=== PATIENT | male | born 1965 | race Caucasian/White ===

== ENCOUNTER 2025-10-28 05:35 | Emergency (ER) | payer SELFPAY ==
[2025-10-28 05:37] VITALS: BP 182/113
[2025-10-28 05:54] VITALS: BMI 37.2
--- NOTE | 2025-10-28 05:56 | EDRN ---
Pt thinks he has sleep apnea and says when he sleeps, his mouth and throat get dry. Yesterday, pt noted a lump in his throat. At 0500, pt woke to go to the bathroom and felt the lump in his throat. Pt tried to spit out phlegm and says what came
out was dark blood which scared him. Pt thinks he might have an obstruction in his throat. Throat is not sore, just dry. Pt handling oral secretions. Pt feels if he spits anything out, blood will come out. Pt does not know if he can eat or
drink. Pt talking in full sentences. No ill contact, fever/chills/cough, ear ache.
[2025-10-28 06:03] VITALS: BP 140/93
--- NOTE | 2025-10-28 06:26 | ED.GENMED ---
History of Present Illness
General
Chief Complaint: Throat Problem
Time Seen by Provider: 10/28/25 06:05
History of Present Illness
History of Present Illness:
60-year-old male with history of hypertension, hyperlipidemia, prediabetes, MU presenting to the emergency department for throat discomfort. Patient reports that he woke up acutely around 5 AM and felt like something was stuck in his throat. He
reports that he had phlegm, and he then spit up blood. Denies any cough or hemoptysis. Denies difficulty breathing. He has since not tried to swallow any food or liquid. Does note that he has been told in the past that he has mild obstructive
sleep apnea. Denies any chest pain or difficulty breathing. He is not on any blood thinners. Does report history of PE in the past, however notes that it was provoked by COVID. Denies fever or pain to the throat. Denies additional acute medical
complaints
Phy Exam
Physical Exam
Physical Exam:
General: Well-appearing, no clinical signs of dehydration, nontoxic and in no acute distress
HEENT: protecting airway, no oral pharyngeal swelling, large anatomic uvula. Normal phonation of voice, no stridor
Neck: appears supple, no palpation of external masses
CV: Normal heart rate, regular rhythm
Resp: No accessory muscle use, no increased work of breathing, lungs clear to auscultation bilaterally
Abd: No distention
Extremities: No deformities, no swelling
Neuro: alert, no focal neurologic deficit
: deferred
Rectal: deferred
Psych: Normal affect
Skin: Intact
Course
Orders/Labs/Results
Orders:
Orders
10/28/25 06:26
CT Neck W/o Iv Contrast Urgent
Comment:
Reason For Exam: feels like something is stuck
Vital Signs
Initial and Last Documented VS:
Initial Vital Signs
Temp Pulse Resp BP Pulse Ox
98.6 F 118 18 182/113 98
10/28/25 05:37 11/28/25 05:37 10/28/25 05:37 10/28/25 05:37 10/28/25 05:37
Last Documented Vital Signs
Temp Pulse Resp BP Pulse Ox
98.6 F 96 16 155/85 95
10/28/25 05:37 10/28/25 08:00 10/28/25 08:00 10/28/25 08:00 10/28/25 08:00
MDM/Problems Addressed
MDM/Problems Addressed:
60-year-old male with history of hypertension, hyperlipidemia, prediabetes presenting for feeling like something is stuck in his throat. Vital signs are significant for hypertension and tachycardia, however resolved without any intervention.
On exam, patient is very anxious. However, no respiratory distress. Patient presently protecting his airway. Normal phonation of voice, no stridor. He is handling his secretions without difficulty. I had patient drink water at bedside, no
issues. Given patient's symptom presentation and physical exam. Ultimately suspect episode of apnea from known sleep apnea, likely made worse from known anatomically large uvula. Unclear source of blood that patient had been spitting up. No
signs of blood in the airway. Patient denies any hemoptysis or difficulty breathing. Without present concern for PE. Will obtain CT without contrast for further assessment. However at this time, patient is clinically and hemodynamically stable
08:10 -CT without acute concerning findings. Continue to assist sleep apnea with combination of large uvula. No findings of uvulitis. Also suspect possible globus sensation. Patient reports that he ate some sardines last night. Will start
patient on Pepcid. He has an appointment with ENT on Friday. Feel stable for discharge. Return precautions discussed and patient verbalized understanding
*Pulse Oximetry
SaO2: 97
Oxygen Mode of Delivery: Room air
Patient hypoxic: no
*Critical Care Note
Total Time (30-74mins, 75-104mins- exclusive of procedures): Not Applicable
ED Attending Note
-
Portions of this chart may have been created with voice recognition software.� Occasional wrong word or��sound alike� substitutions may have occurred due to the inherent limitations of voice recognition software.
Discharge Plan
Departure
Prescriptions:
No Action
No Current Medications
0
Referrals:
NONE,* [Family Provider, Internal Medicine]
Interventions
Interventions:
*Risk Screen - Suicide Last Done: 10/28/25 05:40
*General Assessment Last Done: 10/28/25 05:40
*Neglect/Abuse Screening Last Done: 10/28/25 05:40
*ED- Fall Risk Assessment Last Done: 10/28/25 05:40
*ED COVID-19 Vaccine History Last Done: 10/28/25 05:40
*ED Influenza Vaccine History Last Done: 10/28/25 05:40
ED-EENT Assessment Last Done: 10/28/25 07:25
ED- Pulmonary Assessment Last Done: 10/28/25 07:25
Discharge Date and Time
Print Language: AFGHAN
[2025-10-28 07:25] VITALS: BP 144/85
[2025-10-28 08:00] VITALS: BP 155/85
== END 2025-10-28 08:40 | disposition home or self-care (01) ==
LOC: EMR 05:35
PROVIDERS: EMERGENCY PHYSICIAN Student in an Organized Health Care Education/Training Program
DX: R09.A2 Foreign body sensation, throat (principal); I10 Essential (primary) hypertension; E78.5 Hyperlipidemia, unspecified; G47.33 Obstructive sleep apnea (adult) (pediatric); R73.03 Prediabetes; Z86.711 Personal history of pulmonary embolism
CPT/HCPCS: 99284; 70490